=== PATIENT | female | born 1995 | race Caucasian/White ===

== ENCOUNTER 2017-08-07 09:44 | Emergency (ER) | payer SELFPAY ==
[~2017-08-07] VITALS: Ht 167.6 cm; Wt 81.6 kg
--- NOTE | 2017-08-07 10:00 | NUR ---
pt started crying and complaining of pain all over the body. md notified.
[2017-08-07] MEDS ORDERED: librium PO (10:02)
[2017-08-07] MEDS ORDERED: ONDA4TAB5 PO (10:08)
[2017-08-07] MEDS ORDERED: OXCA300T4 PO (10:08)
[2017-08-07 10:42] LABS: CREATININE 0.8 mg/dL (0.6-1.3); POTASSIUM 3.4 mmol/L (3.5-5.1)
[2017-08-07 10:48] LABS: BILIRUBIN,DIRECT 0.2 mg/dL (0.0-0.2); BILIRUBIN,TOTAL 0.9 mg/dL (0.2-1.0); TOTAL PROTEIN, SERUM 7.3 g/dL (6.4-8.2)
--- NOTE | 2017-08-07 10:55 | NUR ---
HOSPITAL JUICE AND CRACKER PROVIDED FOR PT. PT RELUCTANTLY TOOK IT. PT INSISTING THAT WANTS TO GO HOME. SAYS FEELS BETTER. NOTIFIED
--- NOTE | 2017-08-07 11:04 | NUR ---
Patient discharged to home in stable conditon. Written and verbal after care instructions given. Patient verbalizes understanding of instructions.PT WALKS IN Steady gait accompanied by the personnel from the rehab fascility pt came from. pt not driving
[2017-08-07 11:08] VITALS: BP 110/55
[2017-08-07 11:29] LABS: HEMATOCRIT 41.5 % (37-47); HEMOGLOBIN 13.9 G/DL (12.0-16.0); MEAN CORPUSCULAR VOLUME 84.6 FL (81.0-99.0); WHITE BLOOD COUNT (AUTO) 6.6 K/UL (4.0-11.2)
[2017-08-07 11:30] LABS: LYMPHOCYTES % (AUTO) 27.7 % (20.5-51.5); MEAN CORPUSCULAR HEMOGLOBIN 28.4 UUG (27.0-31.0); MEAN CORPUSCULAR HGB CONC 34 g/dL (32.0-37.0); MONOCYTES % (AUTO) 5.9 % (0.0-11.0); NEUTROPHILS % (AUTO) 63.8 % (38.5-71.5); PLATELET COUNT (AUTO) 169 K/UL (150-450)
[2017-08-07 11:31] LABS: BASOPHILS % (AUTO) 0.5 % (0.0-2.0); EOSINOPHILS # (AUTO) 0.1 K/uL (0.0-0.7); EOSINOPHILS % (AUTO) 2.1 % (0.0-7.0); LYMPHOCYTES # (AUTO) 1.8 K/UL (0.8-4.8); MONOCYTES # (AUTO) 0.4 K/UL (0.1-1.30); NEUTROPHILS # (AUTO) 4.2 K/UL (1.8-8.9)
== END 2017-08-07 11:13 | disposition home or self-care (01) ==
LOC: ER 09:44
DX: R55 Syncope and collapse (principal)
CPT/HCPCS: 71010; 80048; 80076; 84484; 85025; 93005; 99285; A4663; 36415; 70030-TC